=== PATIENT | male | born 1975 | race Caucasian/White ===

== ENCOUNTER 2018-05-13 16:43 | Emergency (ER) | payer SELFPAY ==
[2018-05-13 17:25] LABS: BILIRUBIN,URINE NEGATIVE (NEGATIVE); GLUCOSE, URINE (UA) NEGATIVE (NEGATIVE); KETONES,URINE (UA) NEGATIVE (NEGATIVE); LEUKOCYTE ESTERASE, URINE NEGATIVE (NEGATIVE); NITRITE,URINE NEGATIVE (NEGATIVE); OCCULT BLOOD,URINE NEGATIVE (NEGATIVE); PROTEIN,URINE NEGATIVE (NEGATIVE); UROBILINOGEN,URINE 0.2 (NORMAL) E.U./dL (NORMAL)
[2018-05-13 17:30] LABS: CLARITY,URINE CLEAR (CLEAR)
[2018-05-13] MEDS ORDERED: SODIUM CHLORIDE 0.9% 1,000 ML IV ONE (17:32)
[2018-05-13 17:42] LABS: BASOPHILS % (AUTO) 0.5 %; EOSINOPHILS # (AUTO) 0.2 10^3/uL (0.0-0.7); EOSINOPHILS % (AUTO) 3.3 %; HGB - HEMOGLOBIN 14.5 g/dL (14.0-18.0); LYMPHOCYTES # (AUTO) 2.7 10^3/uL (1.5-3.5); LYMPHOCYTES % (AUTO) 38.2 %; MEAN CORPUSCULAR HEMOGLOBIN 28.9 pg (27.0-31.0); MEAN CORPUSCULAR HGB CONC 34.3 g/dL (32.0-36.0); MEAN CORPUSCULAR VOLUME 84.4 fL (80.0-94.0); MONOCYTES # (AUTO) 0.5 10^3/uL (0.0-1.0); MONOCYTES % (AUTO) 7.1 %; NEUTROPHILS # (AUTO) 3.6 10^3/uL (1.5-6.6); NEUTROPHILS % (AUTO) 50.9 %; PLT - PLATELET COUNT 280 10^3/uL (130-450); RED BLOOD COUNT 5.02 10^6/uL (4.70-6.10); RED CELL DISTRIBUTION WIDTH 12.7 % (12.0-15.0)
[2018-05-13 17:54] LABS: ALBUMIN 4.4 g/dL (3.2-5.5); ALBUMIN/GLOBULIN RATIO 1.4 (1.0-2.2); BILIRUBIN,TOTAL 0.6 mg/dL (0.2-1.0); CALCIUM 9.5 mg/dL (8.5-10.3); CREATININE 1.4 mg/dL (0.6-1.2); TOTAL PROTEIN 7.5 g/dL (6.7-8.2)
[2018-05-13] MEDS ORDERED: IOVERSOL 320 100 ML VIAL IVP ONE ×2 (18:12→18:29)
--- NOTE | 2018-05-13 18:40 | ED Physician Documentation ---
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 Seems to be worse with movement and better with rest. Has a history of tumors in the left kidney and had a nephrectomy for this. Has not been following up with his oncologist in [place] for his checks. He is concerned that he may have cancer in the right kidney now. No hematuria. No dysuria. Review of Systems Ten Systems: 10 systems reviewed and negative Constitutional: denies: Fever, Chills Cardiac: denies: Chest pain / pressure Respiratory: denies: Cough GI: denies: Vomiting Skin: denies: Rash Musculoskeletal: denies: Neck pain Neurologic: denies: Focal weakness, Numbness PD PAST MEDICAL HISTORY - Past Medical History Past Medical History: Yes - Past Surgical History Past Surgical History: Yes - Present Medications Home Medications: Ambulatory Orders Medication Instructions Recorded Confirmed No Known Home Medications 05/13/18 05/13/18 - Allergies Allergies/Adverse Reactions: Allergies Allergy/AdvReac Type Severity Reaction Status Date / Time No Known Drug Allergies Allergy Verified 05/13/18 16:49 - Social History Does the pt smoke?: No Smoking Status: Never smoker Does the pt drink ETOH?: Yes Substance Use and Type: Marijuana - Immunizations Immunizations are current?: Yes - POLST Patient has POLST: No PD ED PE NORMAL - Vitals Vital signs reviewed: Yes - General General: Alert and oriented X 3, No acute distress - HEENT HEENT: Moist mucous membranes - Neck Neck: Supple, no meningeal sign - Cardiac Cardiac: RRR - Respiratory Respiratory: No respiratory distress, Clear bilaterally - Abdomen Abdomen: Soft, Non tender, Non distended - Back Back: No CVA TTP, No spinal TTP - Derm Derm: Warm and dry - Neuro Neuro: Alert and oriented X 3 Results - Vitals Vitals: Vital Signs - 24 hr 05/13/18 05/13/18 05/13/18 16:47 16:49 19:17 Temperature 36.7 C Heart Rate 64 64 66 Respiratory 20 20 18 Rate Blood Pressure 136/88 H 136/88 H 130/80 O2 Saturation 99 99 100 Oxygen O2 Source Room air - Labs Labs: Laboratory Tests 05/13/18 05/13/18 05/13/18 17:20 17:35 17:35 WBC 7.0 RBC 5.02 Hgb 14.5 Hct 42.3 MCV 84.4 MCH 28.9 MCHC 34.3 RDW 12.7 Plt Count 280 MPV 7.0 L Neut # (Auto) 3.6 Lymph # (Auto) 2.7 Marion # (Auto) 0.5 Eos # (Auto) 0.2 Baso # (Auto) 0.0 Absolute Nucleated RBC 0.00 Nucleated RBC % 0.0 Sodium 139 Potassium 4.2 Chloride 103 Carbon Dioxide 28 Anion Gap 8.0 BUN 25 H Creatinine 1.4 H Estimated GFR (MDRD) 56 L Glucose 90 Calcium 9.5 Total Bilirubin 0.6 AST 29 ALT 33 Alkaline Phosphatase 70 Total Protein 7.5 Albumin 4.4 Globulin 3.1 Albumin/Globulin Ratio 1.4 Lipase 42 Urine Color YELLOW Urine Clarity CLEAR Urine pH 7.0 Ur Specific [place] 1.015 Urine Protein NEGATIVE Urine Glucose (UA) NEGATIVE Urine Ketones NEGATIVE Urine Occult Blood NEGATIVE Urine Nitrite NEGATIVE Urine Bilirubin NEGATIVE Urine Urobilinogen 0.2 (NORMAL) Ur Leukocyte Esterase NEGATIVE Ur Microscopic Review NOT INDICATED Urine Culture Comments NOT INDICATED - Rads (name of study) CT abd/pelvis Radiology: Prelim report reviewed, EMP read contemporaneously, See rad report (No acute abnormalities) PD MEDICAL DECISION MAKING - ED course Complexity details: reviewed results, re-evaluated patient, considered differential, d/w patient ED course: 43-year-old male with what appears to be musculoskeletal back pain from his 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 He does have a history of renal cell carcinoma and has had one nephrectomy and has not followed up. Therefore a CT scan was performed. No acute findings. Laboratory tests are without acute issue as well. We will continue Tylenol at home for pain. I will him follow-up with his doctor for further care. No evidence of cauda equina, epidural abscess. Patient counseled regarding signs and symptoms for which I believe and urgent re- evaluation would be necessary. Patient with good understanding of and agreement to plan and is comfortable going home at this time This document was made in part using voice recognition software. While efforts are made to proofread this document, sound alike and grammatical errors may occur. Also recommend that he follow-up closely with his oncologist Departure - Departure Disposition: 01 Home, Self Care Clinical Impression: Back pain Qualifiers: Back pain location: thoracic back pain Chronicity: chronic Back pain laterality: right Qualified Code(s): M54.6 - Pain in thoracic spine Condition: Good Instructions: ED Neck Back Pain General Follow-Up: your,doctor within 2 weeks [Other] Comments: Your testing is normal tonight. You should still follow-up with your oncologist for your MRI. Return if you worsen Discharge Date/Time: 05/13/18 19:17
--- NOTE | 2018-05-13 18:50 | CT Report ---
Reason: r flank pain Procedure Date: 05/13/2018 Accession Number: [id number] / [id number] Procedure: CT - Abdomen/Pelvis W CPT Code: FULL RESULT: EXAM: CT ABDOMEN AND PELVIS EXAM DATE: 05/13/2018 06:27 PM. CLINICAL HISTORY: R flank pain. COMPARISONS: None. TECHNIQUE: Routine helical CT imaging was performed through the abdomen and pelvis. IV contrast: opti 320 90 ml. Enteric contrast: No. Reconstructions: Coronal and sagittal. In accordance with CT protocol optimization, one or more of the following dose reduction techniques were utilized for this exam: automated exposure control, adjustment of mA and/or KV based on patient size, or use of iterative reconstructive technique. FINDINGS: ABDOMEN: Lung Bases: Incompletely included lower lungs are grossly clear. Heart size is within normal limits. No basilar effusions. Liver: Unremarkable. Spleen: Unremarkable. Pancreas: Unremarkable. Gallbladder/Bile Ducts: Gallbladder is unremarkable. Biliary tree is normal caliber. Adrenal Glands: Unremarkable. Kidneys: Status post left nephrectomy. Right kidney is unremarkable. Peritoneum/Mesentery/Bowel: No free fluid, free air, or collection. No intestinal obstruction or inflammation. Scattered colonic diverticulosis. The appendix is within normal limits. Lymph nodes: No mesenteric, periportal, or retroperitoneal lymphadenopathy. Vasculature: Abdominal aorta is nonaneurysmal. Portal vein is patent. Hepatic veins are patent. PELVIS: The bladder is unremarkable for the degree of distention. Prostate is present. No pelvic lymphadenopathy. Bones: No suspicious osseous lesions. IMPRESSION: No acute abnormalities. RADIA
[2018-05-13 19:19] VITALS: BP 130/80
== END 2018-05-13 19:17 | disposition home or self-care (01) ==
LOC: ED 16:43
DX: M54.6 Pain in thoracic spine (principal); Z90.5 Acquired absence of kidney; Z85.528 Personal history of other malignant neoplasm of kidney
CPT/HCPCS: 36415; 74177; 80053; 81003; 83690; 85025; 99283; Q9967; 81001; 87086

== ENCOUNTER 2020-10-25 22:57 | Emergency (ER) | payer OTHER ==
[2020-10-25 23:04] VITALS: BP 150/90
[2020-10-25] MEDS ORDERED: TETANUS/DIPHTHERIA/PERTUSSIS 0.5 ML SYRINGE IM ONE (23:18)
[2020-10-25] MEDS ORDERED: ACETAMINOPHEN 325 MG TABLET PO STA (23:20)
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
[2020-10-25] MEDS ORDERED: BACITRACIN ZINC OINT 1 PACKET TOP STA (23:21)
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
== END 2020-10-26 00:04 | disposition home or self-care (01) ==
LOC: ED 22:57
DX: S46.212A Strain of muscle, fascia and tendon of other parts of biceps, left arm, initial encounter (principal); S00.01XA Abrasion of scalp, initial encounter; S50.312A Abrasion of left elbow, initial encounter; Y04.0XXA Assault by unarmed brawl or fight, initial encounter; Y93.89 Activity, other specified; Y92.511 Restaurant or cafe as the place of occurrence of the external cause; Y99.0 Civilian activity done for income or pay
CPT/HCPCS: 73030; 73060; 73070; 90471; 90715; 99281; 99284; A9270

== ENCOUNTER 2020-10-27 10:05 | Emergency (ER) | payer OTHER ==
[2020-10-27 10:21] VITALS: BP 128/88
[2020-10-27] MEDS ORDERED: KETOROLAC 60 MG/2 ML VIAL IM STA (11:37)
[2020-10-27] MEDS ORDERED: ONDANSETRON ODT 4 MG TABLET TL STA (11:37)
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
--- NOTE | 2020-10-27 12:07 | CT Report ---
PROCEDURE: HEAD WO INDICATIONS: Concussion, persistent nausea TECHNIQUE: Noncontrast 4.5 mm thick angled axial sections acquired from the foramen magnum to the vertex. For r adiation dose reduction, the following was used: automated exposure control, adjustment of mA and/or kV according to patient size. COMPARISON: None. FINDINGS: Image quality: Excellent. CSF spaces: Basal cisterns are patent. No extra-axial fluid collections. Ventricles are normal in size and shape. Brain: No midline shift. No intracranial masses or hemorrhage. Manjarrez-white matter interface is norm al. Skull and face: Calvarium and visualized facial bones are intact, without suspicious lesions. Sinuses: Visualized sinuses and mastoids are clear. IMPRESSION: No acute intracranial finding. Reviewed by: Liborio Torres MD on 10/27/2020 12:06 PM PDT Approved by: Liborio Torres MD on 10/27/2020 12:06 PM PDT Station ID: [id number]
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
== END 2020-10-27 13:05 | disposition home or self-care (01) ==
LOC: ED 10:05
DX: S06.0X0A Concussion without loss of consciousness, initial encounter (principal); S62.024A Nondisplaced fracture of middle third of navicular [scaphoid] bone of right wrist, initial encounter for closed fracture; S46.212A Strain of muscle, fascia and tendon of other parts of biceps, left arm, initial encounter; M25.522 Pain in left elbow; Y04.0XXA Assault by unarmed brawl or fight, initial encounter; Y93.89 Activity, other specified; Y92.511 Restaurant or cafe as the place of occurrence of the external cause; Y99.0 Civilian activity done for income or pay
CPT/HCPCS: 1040M; 70450; 73080; 73110; 96374; 99284; Q0162

== ENCOUNTER 2020-11-06 11:24 | Outpatient (CLI) | payer OTHER | END 2020-11-06 23:59 | disposition home or self-care (01) | LOC: LAB.N 11:24 | PROVIDERS: ATTEND Orthopaedic Surgery | DX: Z01.812 Encounter for preprocedural laboratory examination (principal); Z20.822 Contact with and (suspected) exposure to COVID-19 ==

== ENCOUNTER 2020-11-10 07:57 | Day surgery (SDC) | payer OTHER ==
[2020-11-10] MEDS ORDERED: ACETAMINOPHEN 1,000 MG/100 ML 100 ML IV ONE (08:09)
[2020-11-10] MEDS ORDERED: CELECOXIB 100 MG CAPSULE PO ONE (08:09)
[2020-11-10] MEDS ORDERED: CEFAZOLIN SODIUM IN 0.9 % NACL 2 GM/100 ML BAG IV ONE (08:09)
[2020-11-10] MEDS ORDERED: GABAPENTIN 400 MG CAPSULE ONE (08:09)
[2020-11-10] MEDS ORDERED: LACTATED RINGERS 1,000 ML IV ONE ×2 (08:17→13:44)
--- NOTE | 2020-11-10 08:59 | ANESTHESIA ---
Pre-Anesthesia VS, & Labs - Diagnosis distal biceps tendon rupture - Procedure repair of distal biceps tendon, left Vital Signs: Temp Pulse Resp BP Pulse Ox 36.5 C 80 16 132/81 H 97 11/10/20 08:19 11/10/20 08:19 11/10/20 08:19 11/10/20 08:19 11/10/20 08:19 Height: 5 ft 10 in Weight (kg): 90 kg Body Mass Index: 28.4 BMI Classification: Overweight - NPO >8 hours Home Medications and Allergies Allergies/Adverse Reactions: Allergies Allergy/AdvReac Type Severity Reaction Status Date / Time No Known Drug Allergies Allergy Verified 10/27/20 10:17 Anes History & Medical History - Anesthetic History Anesthesia Complications: reports: No previous complications - Medical History Cardiovascular: reports: Atrial fibrillation (history per patient) Pulmonary: reports: None Urinary: reports: Other Smoking Status: Current some day smoker (THC) History of Cancer?: Yes - Surgical History Urologic: reports: Nephrectomy Exam General: Alert Dental: WNL Respiratory: Lungs clear Cardiovascular: Regular rate, Normal S1, Normal S2 Plan Anesthesia Type: General Consent for Procedure(s) Verified and Reviewed: Yes Code Status: Attempt Resuscitation ASA classification: 2-Mild systemic disease Is this case an emergency?: No
[2020-11-10] MEDS ORDERED: MORPHINE 2 MG/ML CARPUJECT IVP PRN (09:07)
[2020-11-10] MEDS ORDERED: ATROPINE ABBOJECT 1 MG/10 ML SYRINGE IVP PRN (09:07)
[2020-11-10] MEDS ORDERED: METOCLOPRAMIDE 10 MG/2 ML VIAL IVP PRN (09:07)
[2020-11-10] MEDS ORDERED: ePHEDrine 50 MG/ML VIAL IVP PRN (09:07)
[2020-11-10] MEDS ORDERED: ONDANSETRON 4 MG/2 ML VIAL IVP PRN (09:07)
[2020-11-10] MEDS ORDERED: HYDROmorphone 0.5 MG/0.5 ML SYRINGE IVP PRN (09:07)
[2020-11-10] MEDS ORDERED: fentaNYL 100 MCG/2 ML VIAL IVP PRN (09:07)
[2020-11-10] MEDS ORDERED: NALOXONE 0.4 MG/ML VIAL IVP PRN (09:07)
[2020-11-10] MEDS ORDERED: LACTATED RINGERS 1,000 ML IV SCH (10:00)
[2020-11-10] MEDS ORDERED: oxyCODONE 5 MG TABLET PO PRN (10:48)
[2020-11-10] MEDS ORDERED: KETOROLAC 15 MG/ML VIAL IVP STA (10:48)
[2020-11-10] MEDS ORDERED: PROPOFOL 200 MG/20 ML VIAL IVP ONE (10:53)
[2020-11-10] MEDS ORDERED: MIDAZOLAM 2 MG/2 ML VIAL ONE (10:54)
[2020-11-10] MEDS ORDERED: fentaNYL 100 MCG/2 ML VIAL ONE ×3 (10:54→14:04)
[2020-11-10] MEDS ORDERED: LIDOCAINE-MPF 2% 5 ML VIAL ONE (10:54)
[2020-11-10] MEDS ORDERED: BUPIVACAINE 0.5%-EPI 1:200000 PF 30 ML VIAL SUBQ ONE ×2 (11:04→13:30)
[2020-11-10] MEDS ORDERED: BUPIVACAINE 0.5%-EPI 1:200000 PF 30 ML VIAL ONE (11:04)
[2020-11-10] MEDS ORDERED: DEXAMETHASONE 4 MG/ML VIAL ONE (11:52)
[2020-11-10] MEDS ORDERED: KETOROLAC 30 MG/ML VIAL ONE (11:52)
[2020-11-10] MEDS ORDERED: ONDANSETRON 4 MG/2 ML VIAL ONE (11:52)
[2020-11-10] MEDS ORDERED: HYDROmorphone 1 MG/ML CARPUJECT ONE ×2 (11:56→14:18)
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
[2020-11-10] MEDS ORDERED: oxyCODONE 5 MG TABLET ONE (14:40)
[2020-11-10 14:55] VITALS: BP 139/88
--- NOTE | 2020-11-10 16:36 | ANESTHESIA POST OP EVALUATION ---
Anesthesia Post Eval - Post Anesthesia Eval Vitals: Last Vital Signs Temp 36.4 C L 11/10/20 14:55 Pulse 69 11/10/20 14:55 Resp 14 11/10/20 14:55 BP 139/88 H 11/10/20 14:55 Pulse Ox 95 11/10/20 14:55 CV Function Including HR & BP: Stable Pain Control: Satisfactory Nausea & Vomiting: Negative Mental Status: Baseline Respiratory Status: Airway Patent Hydration Status: Satisfactory Anesthesia Complications: None
--- NOTE | 2020-11-10 17:10 | XRAY Report ---
PROCEDURE: OR C-Arm Procedure INDICATIONS: BICEPS REPAIR TECHNIQUE: Single intraoperative view. COMPARISON: X-ray wrist 10/27/2020 FINDINGS: Single intraoperative view demonstrates surgical hardware overlying the proximal radius. IMPRESSION: Intraoperative image as above.. Reviewed by: Mar Rodriguez MD on 11/10/2020 5:09 PM PDT Approved by: Mar Rodriguez MD on 11/10/2020 5:09 PM PDT Station ID: [id number]
== END 2020-11-10 07:58 | disposition home or self-care (01) ==
LOC: SDS 07:57
PROVIDERS: ATTEND Orthopaedic Surgery
DX: S46.212A Strain of muscle, fascia and tendon of other parts of biceps, left arm, initial encounter (principal); Z86.79 Personal history of other diseases of the circulatory system; F17.200 Nicotine dependence, unspecified, uncomplicated
CPT/HCPCS: 24342; 93005; A9270; J0131; J0690; J1170; J7120

== ENCOUNTER 2020-12-23 09:52 | Outpatient (CLI) | payer OTHER ==
--- NOTE | 2020-12-23 17:26 | XRAY Report ---
PROCEDURE: Wrist 4 View BILAT INDICATIONS: NONDISPLACED FX OF R WRIST NAVICULAR BONE TECHNIQUE: 4 views of the right wrist and left wrist were acquired. COMPARISON: Right wrist x-ray series 10/27/2020. FINDINGS: Bones: No left wrist fracture or dislocation. No suspicious bony lesions. Scaphoid view: Lucency noted in the waist of the scaphoid bone compatible with nondisplaced fracture . The right scaphoid fracture is not significantly changed compared to prior exam. The scaphoid bone is intact. Soft tissues: No suspicious soft tissue calcifications. IMPRESSION: Nondisplaced right scaphoid fracture. Reviewed by: Stacey Douglas MD, PhD on 12/23/2020 5:25 PM PDT Approved by: Stacey Douglas MD, PhD on 12/23/2020 5:25 PM PDT Station ID: [id number]
== END 2020-12-23 09:55 ==
LOC: DI.N 09:52
PROVIDERS: ATTEND Physician Assistant
DX: S62.024A Nondisplaced fracture of middle third of navicular [scaphoid] bone of right wrist, initial encounter for closed fracture (principal)